=== PATIENT | female | born 1950 | race Asian ===

== ENCOUNTER 2024-11-08 12:46 | Outpatient (REF) | payer OTHER, SELFPAY ==
--- OUTSIDE RECORDS SUMMARY | 2024-11-08 15:18 | XMS_ITS | Clinical Summary ---
Author Organization [facility], Address [address] [place] [address] [place] [address] Phone Care Team Providers Care Burnisher Name Role Phone Jignesh Lin MD Primary Care Provider [phone] Allergies No known active allergies Medications Blood Pressure Monitoring (Blood Pressure Kit) device 1 kit 1 (one) time each day Check blood pressure daily dx code I10 1 each 12/01/2022 Active amLODIPine (NORVASC) 10 MG tablet Take 10 mg by mouth 1 (one) time each day 10/26/2023 Active leflunomide (ARAVA) 10 MG tablet 10 mg every other day 11/03/2023 Active pantoprazole (PROTONIX) 40 MG EC tablet Take 40 mg by mouth 1 (one) time each day 10/17/2023 Active carvedilol (Coreg) 3.125 MG tablet Take 1 tablet (3.125 mg total) by mouth in the morning and 1 tablet (3.125 mg total) in the evening. Take with meals. 60 tablet 11 12/21/2023 12/21/19 25 Active Aspirin Low Dose 81 MG EC tablet Take 1 tablet (81 mg total) by mouth 1 (one) time each day 90 tablet 3 12/21/2023 Active losartan (COZAAR) 100 MG tablet Take 1 tablet (100 mg total) by mouth 1 (one) time each day 90 tablet 3 12/21/2023 Active levothyroxine (SYNTHROID, LEVOTHROID) 75 MCG tablet Take 1 tablet (75 mcg total) by mouth 1 (one) time each day 90 tablet 3 12/21/2023 Active spironolactone (Aldactone) 25 MG tablet Take 1 tablet (25 mg total) by mouth 1 (one) time each day 90 tablet 3 04/21/2024 04/21/20 25 Active furosemide (LASIX) 80 MG tablet Take 1 tablet (80 mg total) by mouth 1 (one) time each day 30 tablet 10/19/2024 Active Active Problems Problem Noted Date Diagnosed Date Chronic kidney disease, stage 4 (severe) 025 Essential (primary) hypertension 11/17/2023 Encounters Date Type Department Care Team Description 10/25/2024 11:10 AM EST [facility] Visit [facility] [address] [place] [phone] Chris Gregory MD Chronic kidney disease, stage 4 (severe) (HCC) (Primary Dx) 10/19/2024 9:10 AM EST Office Visit [facility] [address] [place] [phone] Chris Gregory MD Chronic kidney disease, stage 4 (severe) (HCC) (Primary Dx) 10/05/2024 5:10 PM EST Office Visit [facility] [address] [place] [phone] Chris Gregory MD Essential (primary) hypertension (Primary Dx) from Last 3 Months Social History Tobacco Use Types Packs/Day Years Used Date Smoking Tobacco: Never Assessed Comments Unknown Sex and Gender Information Value Date Recorded Sex Assigned at Not on file Legal Sex Female 4:35 PM EST Gender Identity Not on file Sexual Orientation Not on file Plan of Treatment Upcoming Encounters Date Type Department Care Team (Late st Contact Info) Description 11/24/2024 10:50 AM EDT Office [facility] [address] [place] [phone] Chris Gregory MD [address] [place] [address] [place] [phone] Health Maintenance Due Date Last Done Comments Breast Cancer Screening 1950 Colorectal Cancer Screening: Annual FOBT 11/27/2000 Colorectal Cancer Screening: Colonoscopy 11/27/2000 Colorectal Cancer Screening: Sigmoidoscopy 11/27/2000 Diabetes: Hemoglobin A1C 12/21/2023 Diabetes: Ophthalmology Exam 12/21/2023 Diabetes: Pedal Pulse Checked 12/21/2023 Diabetes: Sensory Foot Exam 12/21/2023 Diabetes: Visual Foot Exam 12/21/2023 Influenza Vaccine (#1) 2024 3, 05/18/2019, 06/12/2010, Additional history exists Pneumococcal Vaccine: 65+ Years Completed 06/09/2018, 01/06/2017, 09/24/2004 Hepatitis B Vaccine Aged Out No longe r eligible based on patient's age to complete this topic Procedures Procedure Name Priority Date/Time Associated Diagnosis Comments URINE ALBUMIN / CREATININE RATIO Routine 10/10/2024 11:29 AM EST Essential (primary) hypertension BASIC METABOLIC PANEL Routine 10/10/2024 11:29 AM EST Essential (primary) hypertension from Last 3 Months Results * (ABNORMAL) Urine Albumin / Creatinine Ratio (10/10/2024 11:29 AM EST) Creatinine, Ur 88.5 Not Estab. mg/dL [facility] Albumin, Urine 4,566.7 Not Estab. ug/mL [facility] Comment: Results confirmed on dilution. Albumin/Creatin ine Ratio 5,160(H) 0 - 29 mg/g creat [facility] Comment: ? Normal: ?0 - ??29 ? Moderately increased: 30 - 300 ? Severely increased: ? >300 Urine (Urine, Clean Catch) 10/10/2024 11:29 AM EST 10/10/2024 Chris Gregory MD LAB URINE ORDERABLES Final Re sult [facility] [address] [place] [address] * (ABNORMAL) Basic metabolic panel (10/10/2024 11:29 AM EST) Glucose 281(H) 70 - 99 mg/dL [facility] BUN 33(H) 8 - 27 mg/dL [facility] Creatinine 2.34(H) 0.57 - 1.00 mg/dL [facility] eGFR CKD-EPI CR 2020 22(L) >59 mL/min/1.7 3 [facility] BUN/Creatinine Ratio 14 12 - 28 [facility] Sodium 136 134 - 144 mmol/L [facility] Potassium 5.8(H) 3.5 - 5.2 mmol/L [facility] Chloride 107(H) 96 - 106 mmol/L [facility] Bicarbonate (CO2) 16(L) 20 - 29 mmol/L [facility] Calcium 8.2(L) 8.7 - 10.3 mg/dL [facility] Blood (Blood, Venous) 10/10/2024 11:29 AM EST 10/10/2024 Chris Gregory MD LAB BLOOD ORDERABLES Final Re sult [facility] [address] [place] [address] from Last [address] [place] [address] ([id number]) HARITHA SOUZA [id number] Care Teams Burnisher Relationship Specialty Start Date End Date Jignesh Lin MD [address] PCP - General Internal Medicine 08/12/23
--- OUTSIDE RECORDS SUMMARY | 2024-11-08 15:18 | XMS_ITS | Encounter Summary ---
Author Organization [facility] Address [address] [place] [address] Phone Care Team Providers Care Environmental Restoration Planner Name Role Phone Jignesh Lin MD Primary Care Provider [phone] Encounter Details Date Type Department Care Team (Late st Contact Info) Description 08/08/2024 Telephone [facility] [address] [place] [address] Judy Enciso [address] [place] [phone] Social History Tobacco Use Types Packs/Day Years Used Date Smoking Tobacco: Never Assessed Comments Unknown Sex and Gender Information Value Date Recorded Sex Assigned at Not on file Legal Sex Female 4:35 PM EST Gender Identity Not on file Sexual Orientation Not on file documented as of this encounter Miscellaneous Notes * Telephone Encounter - Judy Enciso - 08/08/2024 2:17 PM EST Pt's granddaughter called to report Anuj is sick and will call back later to rs. documented in this encounter Plan of Treatment Upcoming Encounters Date Type Department Care Team (Late st Contact Info) Description 11/24/2024 10:50 AM EDT Office Visit [facility] [address] [place] [address] Chris Gregory MD [address] [facility] [place] [address] documented as of this encounter Visit Diagnoses Not on filedocumented in this encounter Care Teams Environmental Restoration Planner Relationship Specialty Start Date End Date Jignesh Lin MD [address] PCP - General Internal Medicine 08/12/23 documented as of this encounter
--- OUTSIDE RECORDS SUMMARY | 2024-11-08 15:18 | XMS_ITS | Encounter Summary ---
Author Organization [facility] Address [address] [place] [address] Phone Care Team Providers Care Vinegar Maker Name Role Phone Jignesh Lin MD Primary Care Provider [phone] Encounter Details Date Type Department Care Team (Late st Contact Info) Description 12/21/2023 Documentation Only [facility] [address] [place] [address] Adelia Colón [place] [address] [place] [address] Social History Tobacco Use Types Packs/Day Years Used Date Smoking Tobacco: Never Assessed Comments Unknown Sex and Gender Information Value Date Recorded Sex Assigned at Not on file Legal Sex Female 4:35 PM EST Gender Identity Not on file Sexual Orientation Not on file documented as of this encounter Plan of Treatment Upcoming Encounters Date Type Department Care Team (Late st Contact Info) Description 11/24/2024 10:50 AM EDT Office Visit [facility] [address] [place] [phone] Chris Gregory MD [address] [facility] [place] [address] documented as of this encounter Visit Diagnoses Not on filedocumented in this encounter Care Teams Vinegar Maker Relationship Specialty Start Date End Date Jignesh Lin MD [address] PCP - General Internal Medicine 08/12/23 documented as of this encounter
--- OUTSIDE RECORDS SUMMARY | 2024-11-08 15:18 | XMS_ITS | Encounter Summary ---
Author Organization [facility], Address [address] [place] [address] Phone Care Team Providers Care Dental Financial Coordinator Name Role Phone Jignesh Lin MD Primary Care Provider [phone] Encounter Details Date Type Department Care Team (Late st Contact Info) Description 10/25/2024 11:10 AM EST Office Visit [facility] [place], [address] [place] [phone] Chris Gregory MD [address] [place] [address] [place] [phone] Chronic kidney disease, stage 4 (severe) (HCC) (Primary Dx) Social History Tobacco Use Types Packs/Day Years Used Date Smoking Tobacco: Never Assessed Comments Unknown Sex and Gender Information Value Date Recorded Sex Assigned at Not on file Legal Sex Female 4:35 PM EST Gender Identity Not on file Sexual Orientation Not on file documented as of this encounter Progress Notes * Chris Gregory MD - 10/25/2024 11:10 AM EST Images from the original note were not included. PATIENT: Anuj Rossi : 1950 ENCOUNTER: 10/25/2024 PCP: Jignesh Lin MD HPI: Anuj Rossi is a 73 y.o. year old female with a history of Since her last visit, the patient has been feeling quite well without any new complaints. Overall the patient is feeling somewhat better. Shedenies any chest pain or shortness of breath. She is not having any headache or visual changes. Herenergy level has returned to baseline. She is tolerating her medical regimen without difficulties. 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 ROS: Constitutional: No fever. Respiratory: No shortness of breath. Cardiovascular: No chest pain. Gastrointestinal: No abdominal pain, nausea or vomiting. Genitourinary: No hematuria. All other systems reviewed and are negative. PAST MEDICAL HISTORY: Patient Active Problem List Diagnosis Date Noted Chronic kidney disease, stage 4 (severe) (HCC) 10/19/2024 Essential (primary) hypertension 11/17/2023 PAST SURGICAL HISTORY: History reviewed. No pertinent surgical history. SOCIAL HISTORY: Social History Tobacco Use Smoking status: Not on file Smokeless tobacco: Not on file Substance Use Topics Alcohol use: Not on file FAMILY HISTORY: History reviewed. No pertinent family history. MEDICATIONS: Outpatient Encounter Medications as of 10/25/2024 Medication Sig Dispense Refill amLODIPine (NORVASC) 10 MG tablet Take 10 mg by mouth 1 (one) time each day Aspirin Low Dose 81 MG EC tablet Take 1 tablet (81 mg total) by mouth 1 (one) time each day 90 tablet 3 Blood Pressure Monitoring (Blood Pressure Kit) device 1 kit 1 (one) time each day Check blood pressure daily dx code I10 1 each 0 carvedilol (Coreg) 3.125 MG tablet Take 1 tablet (3.125 mg total) by mouth in the morning and 1 tablet (3.125 mg total) in the evening. Take with meals. 60 tablet 11 furosemide (LASIX) 80 MG tablet Take 1 tablet (80 mg total) by mouth 1 (one) time each day 30 tablet 0 leflunomide (ARAVA) 10 MG tablet 10 mg every other day levothyroxine (SYNTHROID, LEVOTHROID) 75 MCG tablet Take 1 tablet (75 mcg total) by mouth 1 (one) time each day 90 tablet 3 losartan (COZAAR) 100 MG tablet Take 1 tablet (100 mg total) by mouth 1 (one) time each day 90 tablet 3 pantoprazole (PROTONIX) 40 MG EC tablet Take 40 mg by mouth 1 (one) time each day spironolactone (Aldactone) 25 MG tablet Take 1 tablet (25 mg total) by mouth 1 (one) time each day 90 tablet 3 No facility-administered encounter medications on file as of 10/25/2024. MEDICATION REVIEW: I have reviewed the patient's current medications. ALLERGIES: has No Known Allergies. PHYSICAL EXAM: There were no vitals taken for this visit. Constitutional: No apparent distress Cardiovascular: No friction rub. Pulmonary/Chest: No rales. Abdominal: Soft and non-tender. Extremities: Edema 1-2 LABS: Chemistry Lab Units 10/10/24 1129 CREATININE mg/dL 2.34* BUN mg/dL 33* POTASSIUM mmol/L 5.8* SODIUM mmol/L 136 CO2 mmol/L 16* CHLORIDE mmol/L 107* Bone Mineral Lab Units 10/10/24 1129 CALCIUM mg/dL 8.2* Urine Lab Units 10/10/24 1129 ALB MG/G CREAT UR mg/g creat 5,160* LABORATORY REVIEW: I have reviewed the labs noted above as well as in the chart, in CIS and in Care Everywhere. DOCUMENTATION REVIEW: I have reviewed the applicable outside notes located in the chart, in CIS and in Care Everywhere. ASSESSMENT: 1. 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 At this point her current medical issues include 1. Hypertension-Thankfully the patient's blood pressure control is acceptable and at this point shedoes not require further antihypertensive medication manipulation. 2. CKD stage IIIb likely on the basis of hypertension and diabetes-Although the patient likely has diabetic nephropathy as a cause for her underlying chronic kidney disease, the presence of the vasculitis and her daughter certainly suggest the possibility of familial disorder. I never thought to perform a biopsy before this but at this point I wonder if the patient would benefit. I discussed therisks and benefits of a diagnostic biopsy and also the benefits of genetic testing. The patient appears to be willing to proceed and I will discuss that with there at the time of her next visit. I donot feel compelled to perform a biopsy at this point but will repeat her serologic evaluation for co mpleteness. I appreciate your allowing me to participate in this kind patient's care. I hope all is well. Orders Placed This Encounter Hepatitis B Surface Antibody Hepatitis C antibody C3 Complement C4 Complement JAIME Panel ANCA AB Scrn with titer ANCA Panel (MPO/PR3) Immunofixation electrophoresis DENA, Urine Flippin/Lambda free LT chains w/ratio, Serum Anti-DNA antibody, double-stranded Sedimentation Rate Phospholipase A2 Receptor Antibodies, Serum documented in this encounter Plan of Treatment Upcoming Encounters Date Type Department Care Team (Late st Contact Info) Description 11/24/2024 10:50 AM EDT Office Visit [facility] [place], [address] [facility] [place] [address] Chris Gregory MD [address] [facility] [place] [phone] Scheduled Orders Name Type Priority Associated Diagnoses Orde r Schedule Hepatitis B Surface Antibody Lab Routine Chronic kidney disease, stage 4 (severe) (HCC) Expected: 10/25/2024, Expires: 11/22/2025 Hepatitis C antibody Lab Routine Chronic kidney disease, stage 4 (severe) (HCC) Expected: 10/25/2024, Expires: 11/22/2025 C3 Complement Lab Routine Chronic kidney disease, stage 4 (severe) (HCC) Expected: 10/25/2024, Expires: 11/22/2025 C4 Complement Lab Routine Chronic kidney disease, stage 4 (severe) (HCC) Expected: 10/25/2024, Expires: 11/22/2025 JAIME Panel Lab Routine Chronic kidney disease, stage 4 (severe) (HCC) Expected: 10/25/2024, Expires: 11/22/2025 ANCA AB Scrn with titer Lab Routine Chronic kidney disease, stage 4 (severe) (HCC) Expected: 10/25/2024, Expires: 11/22/2025 ANCA Panel (MPO/PR3) Lab Routine Chronic kidney disease, stage 4 (severe) (HCC) Expected: 10/25/2024, Expires: 11/22/2025 Immunofixation electrophoresis Lab Routine Chronic kidney disease, stage 4 (severe) (HCC) Expected: 10/25/2024, Expires: 11/22/2025 DENA, Urine Lab Routine Chronic kidney disease, stage 4 (severe) (HCC) Expected: 10/25/2024, Expires: 11/22/2025 Flippin/Lambda free LT chains w/ratio, Serum Lab Routine Chronic kidney disease, stage 4 (severe) (HCC) Expected: 10/25/2024, Expires: 11/22/2025 Anti-DNA antibody, double-stranded Lab Routine Chronic kidney disease, stage 4 (severe) (HCC) Expected: 10/25/2024, Expires: 11/22/2025 Sedimentation Rate Lab Routine Chronic kidney disease, stage 4 (severe) (HCC) Expected: 10/25/2024, Expires: 11/22/2025 Phospholipase A2 Receptor Antibodies, Serum Lab Routine Chronic kidney disease, stage 4 (severe) (HCC) Expected: 10/25/2024, Expires: 11/22/2025 documented as of this encounter Visit Diagnoses Diagnosis Chronic kidney disease, stage 4 (severe) (HCC)- Primary documented in this encounter Care Teams Dental Financial Coordinator Relationship Specialty Start Date End Date Jignesh Lin MD [address] PCP - General Internal Medicine 08/12/23 documented as of this encounter
--- OUTSIDE RECORDS SUMMARY | 2024-11-08 15:18 | XMS_ITS | Encounter Summary ---
Author Organization [facility] Address [address] [place] [address] Phone Care Team Providers Care Automobile Detailer Name Role Phone Jignesh Lin MD Primary Care Provider [phone] Encounter Details Date Type Department Care Team (Late st Contact Info) Description 12/21/2023 Documentation Only [facility] [address] [place] [address] Lorena Fitzgerald [address] [place] [address] Social History Tobacco Use Types [...] Visit [facility] [address] [place] [phone] Chris Gregory MD [address] [place] [address] [place] [address] documented as of this encounter Visit Diagnoses Not on filedocumented in this encounter Care Teams Automobile Detailer Relationship Specialty Start Date End Date Jignesh Lin MD [address] PCP - General Internal Medicine 08/12/23 documented as of this encounter
--- OUTSIDE RECORDS SUMMARY | 2024-11-08 15:18 | XMS_ITS | Encounter Summary ---
Author Organization [facility], Address [address] [place] [address] Phone Care Team Providers Care Licensing Analyst Name Role Phone Jignesh Lin MD Primary Care Provider [phone] Encounter Details Date Type Department Care Team (Late st Contact Info) Description 10/19/2024 9:10 AM EST Office Visit [facility] [place], [address] [place] [phone] Chris Gregory MD [address] [place] [address] [place] [phone] Chronic kidney disease, stage 4 (severe) (HCC) [...] Progress Notes * Chris Gregory MD - 10/19/2024 9:10 AM EST Images from the original note were not included. PATIENT: Anuj Rossi : 1950 ENCOUNTER: 10/19/2024 PCP: Jignesh Lin MD HPI: Anuj Rossi is a 73 y.o. year old female with a history of Since her last visit, the patient has been feeling quite well without any new complaints. Since her last visit, the patient has been feeling much better. She has no respiratory symptoms. She denies any nausea or vomiting. Her energy level isquite good. Unfortunately she has noted worsened lower extremity edema. ROS: Constitutional: No fever. Respiratory: No shortness [...] history. MEDICATIONS: Outpatient Encounter Medications as of 10/19/2024 Medication Sig Dispense Refill amLODIPine (NORVASC) 10 [...] facility-administered encounter medications on file as of 10/19/2024. MEDICATION REVIEW: I have reviewed the patient's [...] 1. 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 At this point her current medical issues include 1. Hypertension-The patient's blood pressure control today is quite reasonable and there is no needfor medication dose adjustment. 2. CKD stage IIIb likely on the basis of hypertension and diabetes-Clinically the patient has developed some degree of volume overload and as such I have started her on Lasix at 40 mg a day. I will follow her in 1 week's time and at that point determine if she needs additional diuretic manipulation. She will continue with a low fluid diet but salt has been somewhat problematic for her to avoid. Iwill continue that discussion moving forward. I discussed with the patient and her niece the utility of sodium glucose Co. transport inhibition. We will continue at discussion in the future. I appreciate your allowing me to participate in this kind patient's care. I hope all is well. Orders Placed This Encounter furosemide (LASIX) 80 MG tablet documented in this encounter Plan of Treatment Upcoming Encounters Date Type Department Care Team (Late st Contact Info) Description 11/24/2024 10:50 AM EDT Office Visit [facility] [place], [address] [facility] [place] [phone] Chris Gregory MD [address] [facility] [place] [phone] documented as of this encounter Visit Diagnoses Diagnosis Chronic kidney disease, stage 4 (severe) (HCC)- Primary documented in this encounter Care Teams Licensing Analyst Relationship Specialty Start Date End Date Jignesh Lin MD [address] PCP - General Internal Medicine 08/12/23 documented as of this encounter
--- OUTSIDE RECORDS SUMMARY | 2024-11-08 15:18 | XMS_ITS | Encounter Summary ---
Author Organization [facility] Address [address] [place] [address] Phone Care Team Providers Care Director Of Employer Services Name Role Phone Jignesh Lin MD Primary Care Provider [phone] Encounter Details Date Type Department Care Team (Late st Contact Info) Description 12/21/2023 Documentation Only [facility] [address] [place] [address] Adelia Colón [place] [address] [place] [address] Social History Tobacco Use Types [...] Visit [facility] [address] [place] [phone] Chris Gregory MD [address] [facility] [place] [address] documented as of this encounter Visit Diagnoses Not on filedocumented in this encounter Care Teams Director Of Employer Services Relationship Specialty Start Date End Date Jignesh Lin MD [address] PCP - General Internal Medicine 08/12/23 documented as of this encounter
--- OUTSIDE RECORDS SUMMARY | 2024-11-08 15:18 | XMS_ITS | Encounter Summary ---
Author Organization [facility] Address [address] [place] [address] Phone Care Team Providers Care International Accountant Name Role Phone Jignesh Lin MD Primary Care Provider [phone] Encounter Details Date Type Department Care Team (Late st Contact Info) Description 12/21/2023 Documentation Only [facility] [address] [place] [address] Lorena Fitzgerald [address] [place] [address] Social History Tobacco Use Types [...] [facility] [address] [place] [id number] Chris Gregory MD [address] [place] [address] [place] [address] documented as of this encounter Visit Diagnoses Not on filedocumented in this encounter Care Teams International Accountant Relationship Specialty Start Date End Date Jignesh Lin MD [address] PCP - General Internal Medicine 08/12/23 documented as of this encounter
== END 2024-11-08 12:47 | disposition home or self-care (01) ==
LOC: HO.SH 12:46
PROVIDERS: Visit Provider Internal Medicine
DX: Z01.118 Encounter for examination of ears and hearing with other abnormal findings (principal); H90.3 Sensorineural hearing loss, bilateral
CPT/HCPCS: 92553; 92567